=== PATIENT | male | born 1940 | race Caucasian/White ===

== ENCOUNTER 2025-05-25 08:08 | Day surgery (SDC) | payer MEDICARE, BC ==
[~2025-05-25 08:08] MED LIST: Propofol 200 MG/20 ML SDV ONE; Sodium Chloride 0.9% 10 ML Syringe FLUSH PRN
[2025-05-25] MEDS: Lactated Ringers 1,000 ML IV SCH (08:50)
== END 2025-05-25 10:39 | disposition home or self-care (01) ==
LOC: LL.SDS 08:08
PROVIDERS: ATTEND Surgery
DX: Z12.11 Encounter for screening for malignant neoplasm of colon (principal); D12.5 Benign neoplasm of sigmoid colon; K57.30 Diverticulosis of large intestine without perforation or abscess without bleeding; I10 Essential (primary) hypertension; E11.9 Type 2 diabetes mellitus without complications; Z88.2 Allergy status to sulfonamides; Z79.4 Long term (current) use of insulin; Z79.82 Long term (current) use of aspirin; Z79.899 Other long term (current) drug therapy
CPT/HCPCS: 45385; J2704; J7120; 00811; 99100